=== PATIENT | male | born 1960 | race Caucasian/White ===

== ENCOUNTER 2025-01-01 11:29 | Inpatient (IN) | payer MEDICARE, OTHER ==
--- NOTE | 2025-01-01 11:54 | ED ---
SOB HPI - General Stated Complaint: BIANCA Time Seen by Provider: 01/01/25 11:52 Source: RN notes reviewed, old records reviewed Mode of arrival: EMS Limitations: no limitations, language barrier - History of Present Illness Initial Comments: This is a 64-year-old male to the ER for evaluation of weakness weakness and shortness of breath shortness of breath and chest pain. History of COPD, patient has been worsening symptoms for few days but severe today went to an urgent care sent to the Emergency Department due to severely low oxygen levels. Patient feels improved with oxygen here in the ER but still short of breath he also got breathing treatments prior to arrival. Patient states he has been smoking less lately due to inability to smoke and had a half a cigarette today when he began having severe shortness of breath MD Complaint: shortness of breath, cough -: days(s) Radiation: other Severity: severe Severity scale (1-10): 10 Quality: throbbing Consistency: constant Improves With: nothing Worsens With: exertion Known History Of: COPD, asthma Context: recent URI, recent illness Associated Symptoms: denies other symptoms Treatments Prior to Arrival: none - Related Data Home Medications Medication Instructions Recorded Confirmed Albuterol Inhaler [Ventolin Hfa 2 puff INHALATION RT-QID PRN 01/01/25 01/01/25 Inhaler] Atorvastatin [Lipitor] 40 mg PO DAILY 01/01/25 01/01/25 Ergocalciferol (Vitamin D2) 1,250 mcg PO WE 01/01/25 01/01/25 [Drisdol (GEQ) 1,250 MCG (50,000 IU)] Escitalopram [Lexapro] 20 mg PO DAILY 01/01/25 01/01/25 Fenofibrate [Lofibra] 160 mg PO DAILY 01/01/25 01/01/25 Ibuprofen [Motrin] 800 mg PO Q8H PRN 01/01/25 01/01/25 OLANZapine [ZyPREXA] 10 mg PO DAILY 01/01/25 01/01/25 clonazePAM [KlonoPIN] 1 mg PO DAILY PRN 01/01/25 01/01/25 Allergies Allergy/AdvReac Type Severity Reaction Status Date / Time No Known Allergies Allergy Verified 01/01/25 13:19 Review of Systems ROS Statement: Those systems with pertinent positive or pertinent negative responses have been documented in the HPI. ROS Other: All systems not noted in ROS Statement are negative. General Exam General appearance: alert, in no apparent distress Head exam: Present: atraumatic, normocephalic, normal inspection Eye exam: Present: normal appearance, PERRL, EOMI. Absent: scleral icterus, conjunctival injection, periorbital swelling ENT exam: Present: normal exam, mucous membranes moist Neck exam: Present: normal inspection. Absent: tenderness, meningismus, lymphadenopathy Respiratory exam: Present: respiratory distress, wheezes, decreased breath sounds, prolonged expiratory. Absent: rales, rhonchi, stridor Cardiovascular Exam: Present: normal rhythm, tachycardia, normal heart sounds. Absent: systolic murmur, diastolic murmur, rubs, gallop, clicks GI/Abdominal exam: Present: soft, normal bowel sounds. Absent: distended, tenderness, guarding, rebound, rigid Extremities exam: Present: normal inspection, full ROM, normal capillary refill. Absent: tenderness, pedal edema, joint swelling, calf tenderness Back exam: Present: normal inspection Neurological exam: Present: alert, oriented X3, CN II-XII intact Psychiatric exam: Present: normal affect, normal mood Skin exam: Present: warm, dry, intact, normal color. Absent: rash Course Vital Signs 01/01/25 01/01/25 01/01/25 11:33 12:13 13:08 Pulse Rate 111 H 108 H 103 H Respiratory 19 20 Rate Blood Pressure 134/93 133/83 O2 Sat by Pulse 99 96 Oximetry 01/01/25 01/01/25 13:26 14:35 Pulse Rate 106 H 105 H Respiratory 20 Rate Blood Pressure 120/78 O2 Sat by Pulse 95 Oximetry - Reevaluation(s) Reevaluation #1: 01/01/25 13:16 Medical records reviewed Reevaluation #2: 01/01/25 13:17 Patient symptoms are improved but still with shortness of breath here in the emergency department Patient did not appear to be any significant respiratory distress Reevaluation #3: 01/01/25 13:17 Patient informed of results and questions answered Reevaluation #4: Was pt. sent in by a medical professional or institution (, PA, FISH BIN TENDER, urgent care, hospital, or senior care...) When possible be specific @ -no Did you speak to anyone other than the patient for history (EMS, parent, family, police, friend...)? What history was obtained from this source @ -no Did you review nursing and triage notes (agree or disagree)? Why? @ -agree Are old charts reviewed (outside hosp., previous admission, EMS record, old EKG, old radiological studies, urgent care reports/EKG's, senior care records)? Report findings @ -yes Differential Diagnosis (chest pain, altered mental status, abdominal pain women, abdominal pain men, vaginal bleeding, weakness, fever, dyspnea, syncope, headache, dizziness, GI bleed, back pain, seizure, CVA, palpatations, mental health, musculoskeletal)? @ -prior EKG interpreted by me (3pts min.). @ -yes X-rays interpreted by me (1pt min.). @ -yes positive for CHF CT interpreted by me (1pt min.). @ -no U/S interpreted by me (1pt. min.). @ -no What testing was considered but not performed or refused? (CT, X-rays, U/S, labs)? Why? @ -none What meds were considered but not given or refused? Why? @ -none Did you discuss the management of the patient with other professionals (professionals i.e. , PA, FISH BIN TENDER, lab, RT, psych nurse, social media strategist, assistant professor in family studies, teacher, radiation safety officer, foster care case manager)? Give summary @ -no Was smoking cessation discussed for >3mins.? @ -no Was critical care preformed (if so, how long)? @ -yes31 Were there social determinants of health that impacted care today? How? (Homelessness, low income, unemployed, alcoholism, drug addiction, transportation, low edu. Level, literacy, decrease access to med. care, assisted, rehab)? @ -none Was there de-escalation of care discussed even if they declined (Discuss DNR or withdrawal of care, Hospice)? DNR status @ -no What co-morbidities impacted this encounter? (DM, HTN, Smoking, COPD, CAD, Cancer, CVA, ARF, Chemo, Hep., AIDS, mental health diagnosis, sleep apnea, morbid obesity)? @ -none Was patient admitted / discharged? Hospital course, mention meds given and route, prescriptions, significant lab abnormalities, going to OR and other pertinent info. @ - 64 male to ER for evaluation of severe COPD patient will be admitted for COPD exacerbation, CHF, elevated troponin with new left bundle branch will go to the catheterization lab with cardiology, hypoxia prior to arrival. Admitted Undiagnosed new problem with uncertain prognosis? @ -no Drug Therapy requiring intensive monitoring for toxicity (Heparin, Nitro, Insulin, Cardizem)? @ -no Were any procedures done? @ -no Diagnosis/symptom? @ -NSTEMI COPD CHF hypoxia Acute, or Chronic, or Acute on Chronic? @ -Acute Uncomplicated (without systemic symptoms) or Complicated (systemic symptoms)? @ -Complicated Side effects of treatment? @ -no Exacerbation, Progression, or Severe Exacerbation? @ -exacerbation Poses a threat to life or bodily function? How? (Chest pain, [place], [place], pneumonia, PE, COPD, DKA, ARF, appy, cholecystitis, CVA, Diverticulitis, Homicidal, Suicidal, threat to staff... and all critical care pts) @ -yes acute ACS Reevaluation #5: Differential Dyspnea: Coronary syndrome, arrhythmia, tamponade, asthma, COPD, pulmonary embolism, pneumonia, pneumothorax, pulmonary effusion, anaphylaxis, diabetic ketoacidosis, flailed chest, pulmonary contusion, diaphragmatic rupture, anemia, neuromuscular, this is not meant to be an all-inclusive list. - Consultations Consultation #1: Spoke with sounds who agrees to admit this patient Consultation #2: Spoke with cardiology aware of patient's left bundle with no prior EKG on file, elevated troponin at 4.4 Medical Decision Making - Medical Decision Making 64 male to ER for evaluation of severe COPD patient will be admitted for COPD exacerbation, CHF with hypoxia, elevated troponin non-ST elevated [place] with new left bundle will go to the catheterization lab with cardiology - Lab Data Result diagrams: 01/01/25 12:37 01/01/25 12:37 Lab Results 01/01/25 01/01/25 01/01/25 Range/Units 12:37 12:37 12:37 WBC 11.90 H (4.50-10.00) 10*3/uL RBC 5.24 (4.40-5.60) 10*6/uL Hgb 16.2 (13.0-17.0) g/dL Hct 47.8 (39.6-50.0) % MCV 91.2 (80.0-97.0) fL MCH 30.9 (27.0-32.0) pg MCHC 33.9 (32.0-37.0) g/dL Plt Count 291 (140-440) 10*3/uL MPV 10.6 (9.5-12.2) fL Immature Gran % (Auto) 0.6 % Neutrophils % 82.0 % Lymphocytes % 11.4 % Monocytes % 5.1 % Eosinophils % 0.3 % Basophils % 0.6 % Immature Gran # 0.07 H (0.00-0.04) 10*3/uL Neutrophils # 9.76 H (1.80-7.70) 10*3/uL Lymphocytes # 1.36 (0.90-5.00) 10*3/uL Monocytes # 0.61 (0.20-1.00) 10*3/uL Eosinophils # 0.03 L (0.04-0.35) 10*3/uL Basophils # 0.07 (0.00-0.10) 10*3/uL PT 11.6 (10.0-12.5) sec INR 1.1 (<1.2) APTT 24.2 (22.0-30.0) sec Sodium 133 L (137-145) mmol/L Potassium 4.8 (3.5-5.1) mmol/L Chloride 99 (98-107) mmol/L Carbon Dioxide 22 (22-30) mmol/L Anion Gap 12 mmol/L BUN 16 (9-20) mg/dL Creatinine 1.11 (0.66-1.25) mg/dL Est GFR (CKD-EPI)AfAm 80 (>60 ml/min/1.73 sqM) Est GFR (CKD-EPI)NonAf 70 (>60 ml/min/1.73 sqM) Glucose 127 H (74-99) mg/dL Estimated Ave Glu mg/dL mg/dL Hemoglobin A1c (<=6.0) % Calcium 9.5 (8.4-10.2) mg/dL Magnesium 1.7 (1.6-2.3) mg/dL Total Bilirubin 1.1 (0.2-1.3) mg/dL AST 80 H (17-59) U/L ALT 39 (4-49) U/L Alkaline Phosphatase 48 (38-126) U/L Troponin I (0.000-0.034) ng/mL NT-Pro-B Natriuret Pep 2270 pg/mL Total Protein 7.5 (6.3-8.2) g/dL Albumin 4.1 (3.5-5.0) g/dL Triglycerides (0.00-149.00) mg/dL Cholesterol (0.00-200.00) mg/dL LDL Cholesterol, Calc (0.0-131.0) mg/dL VLDL Cholesterol, Calc (5.00-40.00) mg/dL HDL Cholesterol (40.00-60.00) mg/dL Cholesterol/HDL Ratio Ratio TSH (0.350-5.500) UIU/ML 01/01/25 01/01/25 01/01/25 Range/Units 12:37 12:37 12:37 WBC (4.50-10.00) 10*3/uL RBC (4.40-5.60) 10*6/uL Hgb (13.0-17.0) g/dL Hct (39.6-50.0) % MCV (80.0-97.0) fL MCH (27.0-32.0) pg MCHC (32.0-37.0) g/dL Plt Count (140-440) 10*3/uL MPV (9.5-12.2) fL Immature Gran % (Auto) % Neutrophils % % Lymphocytes % % Monocytes % % Eosinophils % % Basophils % % Immature Gran # (0.00-0.04) 10*3/uL Neutrophils # (1.80-7.70) 10*3/uL Lymphocytes # (0.90-5.00) 10*3/uL Monocytes # (0.20-1.00) 10*3/uL Eosinophils # (0.04-0.35) 10*3/uL Basophils # (0.00-0.10) 10*3/uL PT (10.0-12.5) sec INR (<1.2) APTT (22.0-30.0) sec Sodium (137-145) mmol/L Potassium (3.5-5.1) mmol/L Chloride (98-107) mmol/L Carbon Dioxide (22-30) mmol/L Anion Gap mmol/L BUN (9-20) mg/dL Creatinine (0.66-1.25) mg/dL Est GFR (CKD-EPI)AfAm (>60 ml/min/1.73 sqM) Est GFR (CKD-EPI)NonAf (>60 ml/min/1.73 sqM) Glucose (74-99) mg/dL Estimated Ave Glu mg/dL 126 mg/dL Hemoglobin A1c 6.0 (<=6.0) % Calcium (8.4-10.2) mg/dL Magnesium (1.6-2.3) mg/dL Total Bilirubin (0.2-1.3) mg/dL AST (17-59) U/L ALT (4-49) U/L Alkaline Phosphatase (38-126) U/L Troponin I 4.420 H* (0.000-0.034) ng/mL NT-Pro-B Natriuret Pep pg/mL Total Protein (6.3-8.2) g/dL Albumin (3.5-5.0) g/dL Triglycerides 121.00 (0.00-149.00) mg/dL Cholesterol 158.00 (0.00-200.00) mg/dL LDL Cholesterol, Calc 102.2 (0.0-131.0) mg/dL VLDL Cholesterol, Calc 24.20 (5.00-40.00) mg/dL HDL Cholesterol 31.60 L (40.00-60.00) mg/dL Cholesterol/HDL Ratio 5.00 Ratio TSH 1.910 (0.350-5.500) UIU/ML - EKG Data -: EKG Interpreted by Me (EKG is sinus tachycardia 112 WV 139 QRS 163 QTc 429) - Radiology Data Radiology results: report reviewed (Chest x-ray is positive for CHF), image reviewed Critical Care Time Critical Care Time: Yes Total Critical Care Time: 31 Disposition Clinical Impression: Acute exacerbation of chronic obstructive pulmonary disease, Hypoxia, NSTEMI (non-ST elevated myocardial infarction), Left bundle branch block, Elevated troponin, Congestive heart failure, Acute pulmonary edema Disposition: ADMITTED IP TO THIS HOSP Condition: Critical Is patient prescribed a controlled substance at d/c from ED?: No Time of Disposition: 13:10
[2025-01-01] MEDS: methylPREDNISolone SOD SUCCI 125 MG/2 ML VIAL IV STA (12:38)
[2025-01-01 12:48] LABS: Basophils # (A) 0.07 10*3/uL (0.00-0.10); Basophils % (A) 0.6 %; Eosinophils # (A) 0.03 10*3/uL (0.04-0.35); Eosinophils % (A) 0.3 %; HCT 47.8 % (39.6-50.0); HGB 16.2 g/dL (13.0-17.0); Lymphocytes # (A) 1.36 10*3/uL (0.90-5.00); Lymphocytes % (A) 11.4 %; MCH 30.9 pg (27.0-32.0); MCHC 33.9 g/dL (32.0-37.0); MCV 91.2 fL (80.0-97.0); Mean Platelet Volume 10.6 fL (9.5-12.2); Monocytes # (A) 0.61 10*3/uL (0.20-1.00); Monocytes % (A) 5.1 %; Neutrophils # (A) 9.76 10*3/uL (1.80-7.70); Platelet Count 291 10*3/uL (140-440); RBC 5.24 10*6/uL (4.40-5.60); RDW 14.4 % (11.5-14.5)
[2025-01-01 12:59] LABS: INR 1.1 (<1.2); Partial Thromboplastin Time 24.2 sec (22.0-30.0); Prothrombin Time 11.6 sec (10.0-12.5)
[2025-01-01] MEDS ORDERED: ONDANSETRON 4 MG/2 ML VIAL IVP PRN (13:08)
[2025-01-01] MEDS ORDERED: NALOXONE 0.4 MG/ML 1 ML VIAL IV PRN (13:08)
[2025-01-01] MEDS: IPRATROPIUM-ALBUTEROL 3 ML NEB INHALATION STA ×2 (13:08→15:53)
[2025-01-01 13:09] LABS: ALT 39 U/L (4-49); AST 80 U/L (17-59); African American GFR (CKD) 80 (>60 ml/min/1.73 sqM); Albumin 4.1 g/dL (3.5-5.0); Alkaline Phosphatase 48 U/L (38-126); Anion Gap 12 mmol/L; Blood Urea Nitrogen 16 mg/dL (9-20); Calcium 9.5 mg/dL (8.4-10.2); Carbon Dioxide 22 mmol/L (22-30); Chloride 99 mmol/L (98-107); Glucose 127 mg/dL (74-99); Magnesium 1.7 mg/dL (1.6-2.3); NT-Pro-B-Type Natriuretic Pept 2270 pg/mL; Non-African American GFR(CKD) 70 (>60 ml/min/1.73 sqM); Potassium 4.8 mmol/L (3.5-5.1); Sodium 133 mmol/L (137-145); Total Bilirubin 1.1 mg/dL (0.2-1.3); Total Protein 7.5 g/dL (6.3-8.2)
[2025-01-01] MEDS ORDERED: HEPARIN SODIUM 1,000 UN/ML (10ML VL) IV PRN (14:03)
[2025-01-01] MEDS ORDERED: NITROGLYCERIN SL TABS 0.4 MG TAB SUBLINGUAL PRN (14:08)
[2025-01-01] MEDS ORDERED: ALPRAZolam 0.5 MG TAB PO PRN (14:08)
[2025-01-01] MEDS ORDERED: ALPRAZolam 0.25 MG TAB PO PRN (14:08)
--- NOTE | 2025-01-01 14:26 | XR ---
EXAMINATION TYPE: XR chest 1V portable DATE OF EXAM: 01/01/2025 CLINICAL INDICATION: Male, 64 years old with history of sob. TECHNIQUE: Single AP portable upright view of the chest is obtained. COMPARISON: None FINDINGS: There is cardiomegaly with bibasilar opacities and central vascular congestion. Osseous st ructures are intact. IMPRESSION: Correlate for CHF exacerbation. Underlying bibasilar acute infiltrates not excluded. [facility], , 01/01/2025 2:24 PM
[2025-01-01] MEDS: ATORVASTATIN 80 MG TAB PO STA (14:28)
[2025-01-01] MEDS: ASPIRIN 325 MG TAB PO STA (14:28)
[2025-01-01] MEDS: HEPARIN SODIUM 1,000 UN/ML (10ML VL) IV ONE (14:30)
[2025-01-01] MEDS: SODIUM CHLORIDE 0.9% 1,000 ML in EMPTY BAG 1 BAG IV SCH (14:31)
[2025-01-01] MEDS: HEPARIN SOD,PORK IN 0.45% NACL 25,000 UNIT in 0.45% NACL 1 250ML.BAG IV SCH (14:32)
[2025-01-01] MEDS: SODIUM CHLORIDE 0.9% 1,000 ML IV SCH ×2 (14:43→20:04)
[2025-01-01] MEDS: ASPIRIN 81 MG PO STA (14:43)
[2025-01-01] MEDS ORDERED: clonazePAM 1 MG TAB PO PRN (15:12)
[2025-01-01] MEDS: ALBUTEROL NEBULIZED 2.5 MG/3 ML INHALATION SCH (15:54)
[2025-01-01] MEDS: LIDOCAINE 1% INJ 10MG/ML (10 ML MDV) SQ ONE (16:59)
[2025-01-01] MEDS: fentaNYL (PF) 50 MCG/1 ML VIAL IVP ONE (16:59)
[2025-01-01] MEDS: MIDAZOLAM 2 MG/2 ML VIAL IVP ONE (16:59)
[2025-01-01] MEDS: HEPARIN SODIUM 1,000 UN/ML (10ML VL) IVP ONE (17:01)
[2025-01-01] MEDS: VERAPAMIL SYRINGE (5 MG/10 ML) INTRAARTER ONE (17:01)
[2025-01-01] MEDS: HEPARIN SODIUM,PORCINE 10,000 UNIT in SODIUM CHLORIDE 0.9% 1,000 ML IRRIGATION ONE (17:08)
[2025-01-01] MEDS: SODIUM CHLORIDE 0.9% 1,000 ML IV ONE (17:08)
[2025-01-01] MEDS: HEPARIN SODIUM,PORCINE (1 ML) 2,500 UNIT in SODIUM CHLORIDE 0.9% 250 ML IRRIGATION ONE (17:08)
[2025-01-01] MEDS ORDERED: ALBUTEROL NEBULIZED 2.5 MG/3 ML INHALATION PRN (17:15)
[2025-01-01 17:49] LABS: O2 Sat Blood Gas 64.6 %
[2025-01-01 17:52] LABS: O2 Sat Blood Gas 91.9 %
[2025-01-01 17:54] LABS: O2 Sat Blood Gas 63.6 %
[2025-01-01] MEDS ORDERED: methylPREDNISolone SOD SUCCI 125 MG/2 ML VIAL IV SCH (18:00)
[2025-01-01] MEDS: IOPAMIDOL-300 100ML BTL INJ ONE (18:31)
--- NOTE | 2025-01-01 18:51 | P.CARDCATH ---
Date of Procedure: 01/01/25 Description of Procedure: DIAGNOSTIC CORONARY ANGIOGRAPHY and, right heart catheterization, LEFT HEART CATH REPORT PROCEDURES PERFORMED: Left heart catheterization Right heart catheterization Selective coronary angiography Moderate conscious sedation 82 mins Ultrasound assisted right radial access Ultrasound assisted right common femoral vein access Ultrasound assisted right common femoral artery access Attempted intra-aortic balloon pump INDICATION: NSTEMI, cardiomyopathy BRIEF HPI: 64-year-old presented to the hospital because of increased worsening shortness of breath. On admission he was noticed to have sinus tachycardia with new right bundle branch block on EKG. He was also noticed to be in congestive heart failure exacerbation. He reports that he has been smoking 1 to 2 packs for last few weeks and has been increasingly stressed. He denied any symptoms of substernal chest pressure. He also had evidence of elevated troponin of 4.420, NT-proBNP 2270 CONSENT: I have explained the procedural steps of above-mentioned procedures in layman's terms to the patient. I discussed the risks (including but not limited to stroke, emergent vascular or cardiac surgery or ), benefits and alternative therapies for the above-mentioned procedure. I discussed the risks of sedation/analgesia and blood product administration (if indicated). The patient has indicated understanding and acceptance of these risks. Conscious Sedation: Patient's ECG, heart rate, blood pressure, pulse oximetry were monitored throughout the duration of procedure under my direct supervision. 1 mg Versed and 50 mcg Fentanyl were used for induction of moderate conscious sedation. Total duration of moderate concious sedation 82 minutes. PROCEDURAL DETAILS: Patient was prepped and draped in sterile fashion. 1% lidocaine was infiltrated over the right radial artery. Right radial access was obtained via modified seldinger technique. Ultrasound assisted right radial access. Medications: 5mg of verapamil was administed in the radial sheet. 7000 units of Heparin was administed once the catheter reached the aortic root Wires and Catheter used: J wire was advanced under fluroscopy to get to aortic root. 5 slovak JR 4 diagnostic catheter was utilized obtain left ventricular pressure and pressure gradint across aortic valve. 5 slovak JR 4 diagnostic catheter was used to selectively engage the right coronary ostium. 6 slovak JL 4.5 diagnostic catheter was utilized to selectively engage the left coronary ostium. Angiographic images were reviewed in detail. Patient was made to proceed with right heart catheterization for anticipated Impella versus IABP insertion evaluation. Right common femoral artery and common femoral vein was identified using ultrasound. Right common femoral vein access was obtained under ultrasound guidance using a modified Seldinger techn ique. 8 American femoral venous sheath was inserted in the common femoral vein. 7 American [place]-Saniya catheter was advanced to the common femoral vein under fluoroscopy guidance . Right heart catheterization was performed. Pressures and samples were collected from wedge position, pulmonary artery, RV and RA. Mirna cardiac output and thermodilution cardiac output study was performed. The [place]-Saniya catheter was removed. The sheath was flushed. Cardiac output and cardiac index were in favorable range therefore we did not decide to proceed with Impella. We decided to proceed with IABP. For this right common femoral artery was identified using ultrasound. Right common femoral access was obtained using modified Seldinger technique under ultrasound guidance. 6 American sheath was inserted in the right common femoral artery. Right common femoral angiogram was performed which showed appropriate placement of the sheath. While patient the 8 American IABP sheath, there was significant kinking of the wire and the IABP sheath could not be advanced in the femoral artery. The wire eventually came out therefore we decided to abort the IABP placement. Manual pressure was held for 30 minutes. Radial sheath was flushed and removed. TR band was placed. Venous sheath was removed and manual pressure was held. FemoStop was placed HEMODYNAMICS: Aortic Pressure: 98/70 mmHg. LV pressure: 98/16 mmHg. LVEDP 32 mmHg. There was no significant gradient across the aortic valve. Mean PCW pressure: 32 mmHg PA pressure: 54/26 mmHg, mean 40 mmHg RV pressure: 54/7 mmHg, RVEDP 12 mmHg Mean RA pressure: 12 mmHg BSA 2.75, hemoglobin 16, heart rate 103, FA sat 92% RA sat 65% RV sat 64% PA sat 64% Mirna cardiac output 6.2 L/min Mirna cardiac index 2.25 L/min Thermodilution cardiac output 8.8 L/min Thermodilution cardiac index 3.19 L/min/m Appropriate CYTOLOGY SUPERVISOR and Jackie Appropriate SVR and PVR SELECTIVE CORONARY ARTERIOGRAPHY: LEFT MAIN: The left main is short and large caliber vessel. It bifurcates into the LAD and circumflex. Left main appears angiographically normal. LEFT ANTERIOR DESCENDING CORONARY ARTERY: LAD is large caliber and wraps around the apex. Proximal LAD has a 90% stenosis. Mid LAD has mild luminal irregularities. It gives rise to a medium caliber diagonal branch which has mild mid irregularities. Distal part of mid LAD has 30 to 40% disease. Distal LAD appears angiographically patent. VIGNESH-3 flow LEFT CIRCUMFLEX CORONARY ARTERY: LCx is nondominant. Moderate caliber. Proximal LCx 10 to 20% disease. Mid LCx has 80 to 90% focal stenosis. Distal to stenosis mid LCx gives rise to a medium caliber AV groove vessel which appears angiographically patent. Mid LCx mild diffuse disease. Distal LAD gives rise to a medium caliber OM 2 and OM 3. Both OM 2 and OM 3 has 70% ostial disease. Distal LCx has mild diffuse disease. VIGNESH-3 flow RIGHT CORONARY ARTERY: RCA appears to be dominant vessel and is 100% occluded in proximal segment. There are no [id number] collaterals filling distal RCA. IMPRESSION: 100% proximal RCA stenosis 90% proximal LAD stenosis 90% mid LCx stenosis Elevated LVEDP and wedge pressures PLAN: Aggressive risk factor modification Admit to ICU Aspirin, high intensity statin, low-dose beta-kenn, afterload reduction with low-dose nitroglycerin drip CTS consult Reattempt intra-aortic balloon pump if needed tomorrow Monitor right groin for hematoma. Repeat CBC in 6 hours and thereafter tomorrow Performing Physician Cristo Cannon MD, FACC, RPVI Thank you for allowing [facility] to participate in this patient's care. Feel free to reach out in case of any followup questions.
[2025-01-01 18:57] LABS: LDL Cholesterol,Calculated 102.2 mg/dL (0.0-131.0)
[2025-01-01] MEDS ORDERED: RX INFO: IV CONTRAST WAS GIVEN 1 EACH MISC MISCELLANE PRN (18:59)
--- NOTE | 2025-01-01 18:59 | P.CRDCN ---
History of Present Illness Consult date: 01/01/25 History of present illness: HISTORY OF PRESENTING ILLNESS: Patient is a 64-year-old male with history of smoking, bipolar disorder, COPD. He has not seen any physician in the recent past. He initially went to the urgent care because of increased worsening shortness of breath. On admission ER physician contacted me for urgent consult for elevated troponin of 4.420. His EKG showed sinus tachycardia with right bundle branch block. On initial evaluation he appeared mildly diaphoretic and elevated JVP and lower extremity edema. Due to these concerns of acute CHF exacerbation elevated troponin he was taken to the Urologic Nurse patient gave verbal consent.. Admission x-ray shows signs of mild pulmonary congestion with increase interstitial markings suggestive of fluid overload. REVIEW OF SYSTEMS: 14 point review of system is negative except what is mentioned above in HPI. PHYSICAL EXAMINATION: Neck: Brisk carotid upstroke, elevated JVP Lungs: Bilateral lung de leon crackles audible Heart: Regular rate and rhythm, S1-S2, , no murmur or rub. Abdomen: Soft nontender, positive bowel sounds. Extremities: 1+ pedal edema bilateral lower extremity Neuro: Alert, oritented, no focal deficits. Detailed neuro exam was not performed. ASSESSMENT: # NSTEMI # Acute CHF exacerbation # Tobacco smoker 1 to 2 packs/day # Morbid obesity # Bipolar disorder PLAN: Plan for cardiac either transition Further recommendations to follow Obtain echocardiogram Cristo Cannon MD, FACC, RPVI Thank you for allowing [facility] to participate in this patient's care. Feel free to reach out in case of any followup questions. Past Medical History Past Medical History: No Reported History History of Any Multi-Drug Resistant Organisms: None Reported Additional Past Surgical History / Comment(s): eye operations Smoking Status: Current every day smoker Past Alcohol Use History: None Reported Past Drug Use History: None Reported Medications and Allergies Home Medications Medication Instructions Recorded Confirmed Type Albuterol Inhaler [Ventolin Hfa 2 puff INHALATION RT-QID PRN 01/01/25 01/01/25 History Inhaler] Atorvastatin [Lipitor] 40 mg PO DAILY 01/01/25 01/01/25 History Ergocalciferol (Vitamin D2) 1,250 mcg PO WE 01/01/25 01/01/25 History [Drisdol (GEQ) 1,250 MCG (50,000 IU)] Escitalopram [Lexapro] 20 mg PO DAILY 01/01/25 01/01/25 History Fenofibrate [Lofibra] 160 mg PO DAILY 01/01/25 01/01/25 History Ibuprofen [Motrin] 800 mg PO Q8H PRN 01/01/25 01/01/25 History OLANZapine [ZyPREXA] 10 mg PO DAILY 01/01/25 01/01/25 History clonazePAM [KlonoPIN] 1 mg PO DAILY PRN 01/01/25 01/01/25 History Allergies Allergy/AdvReac Type Severity Reaction Status Date / Time No Known Allergies Allergy Verified 01/01/25 13:19 Physical Exam Vitals: Vital Signs Pulse Resp BP Pulse Ox 01/01/25 14:35 105 H 20 120/78 95 01/01/25 13:26 106 H 01/01/25 13:08 103 H 01/01/25 12:13 108 H 20 133/83 96 01/01/25 11:33 111 H 19 134/93 99 Intake and Output 01/01/25 01/01/25 01/01/25 06:59 14:59 22:59 Intake Total 200 Balance 200 Intake: IV 200 Other: Weight 148.325 kg Results 01/01/25 12:37 01/01/25 12:37 Cardiac Enzymes 01/01/25 01/01/25 Range/Units 12:37 12:37 AST 80 H (17-59) U/L Troponin I 4.420 H* (0.000-0.034) ng/mL Coagulation 01/01/25 Range/Units 12:37 PT 11.6 (10.0-12.5) sec APTT 24.2 (22.0-30.0) sec Lipids 01/01/25 Range/Units 12:37 Triglycerides 121.00 (0.00-149.00) mg/dL Cholesterol 158.00 (0.00-200.00) mg/dL HDL Cholesterol 31.60 L (40.00-60.00) mg/dL Cholesterol/HDL Ratio 5.00 Ratio CBC 01/01/25 Range/Units 12:37 WBC 11.90 H (4.50-10.00) 10*3/uL RBC 5.24 (4.40-5.60) 10*6/uL Hgb 16.2 (13.0-17.0) g/dL Hct 47.8 (39.6-50.0) % Plt Count 291 (140-440) 10*3/uL Comprehensive Metabolic Panel 01/01/25 Range/Units 12:37 Sodium 133 L (137-145) mmol/L Potassium 4.8 (3.5-5.1) mmol/L Chloride 99 (98-107) mmol/L Carbon Dioxide 22 (22-30) mmol/L BUN 16 (9-20) mg/dL Creatinine 1.11 (0.66-1.25) mg/dL Glucose 127 H (74-99) mg/dL Calcium 9.5 (8.4-10.2) mg/dL AST 80 H (17-59) U/L ALT 39 (4-49) U/L Alkaline Phosphatase 48 (38-126) U/L Total Protein 7.5 (6.3-8.2) g/dL Albumin 4.1 (3.5-5.0) g/dL Current Medications Generic Name Dose Route Start Last Admin Trade Name Freq PRN Reason Stop Dose Admin Albuterol Sulfate 2.5 mg 01/01/25 16:00 01/01/25 15:54 Albuterol Nebulized 2.5 Mg/3 Ml INHALATION Not Given RT-QID [facility] Albuterol Sulfate 2 mg 01/01/25 17:15 Albuterol Nebulized 2.5 Mg/3 Ml INHALATION RT-QID PRN Shortness Of Breath Albuterol/Ipratropium 3 ml 01/01/25 20:00 Ipratropium-Albuterol 3 Ml Neb INHALATION RT-QID [facility] Alprazolam 0.25 mg 01/01/25 14:08 Alprazolam 0.25 Mg Tab PO Q6HR PRN Mild Anxiety Alprazolam 0.5 mg 01/01/25 14:08 Alprazolam 0.5 Mg Tab PO Q6HR PRN Moderate Anxiety Aspirin 81 mg 01/02/25 09:00 Aspirin 81 Mg PO DAILY [facility] Atorvastatin Calcium 40 mg 01/02/25 09:00 Atorvastatin 40 Mg Tab PO DAILY [facility] Clonazepam 1 mg 01/01/25 15:12 Clonazepam 1 Mg Tab PO DAILY PRN Anxiety Escitalopram Oxalate 20 mg 01/02/25 09:00 Escitalopram 20 Mg Tab PO DAILY [facility] Fenofibrate 160 mg 01/02/25 09:00 Fenofibrate 160 Mg Tab PO DAILY [facility] Sodium Chloride 1,000 mls @ 75 mls/hr 01/01/25 13:15 01/01/25 14:43 Saline 0.9% IV Not Given .[id number] [facility] Heparin Sodium (Porcine) 10, 1,001 mls @ 999 mls/hr 01/02/25 07:00 000 unit/ Sodium Chloride IRRIGATION 01/02/25 23:00 ONCE PRN INTRA-OP Heparin Sodium (Porcine) 2,500 250.5 mls @ 250 mls/hr 01/02/25 07:00 unit/ Sodium Chloride IRRIGATION 01/02/25 23:00 ONCE PRN INTRA-OP Sodium Chloride 1,000 ml/ IV 1,000 mls @ 148.325 mls/hr 01/01/25 14:15 01/01/25 14:31 Solution IV 148.325 mls/hr .[id number] [facility] Administration 1 ML/KG/HR Methylprednisolone Sodium Succinate 60 mg 01/01/25 18:00 Methylprednisolone Sod Succi 125 Mg/2 Ml Vial IV Q6HR [facility] Naloxone HCl 0.2 mg 01/01/25 13:08 Naloxone 0.4 Mg/Ml 1 Ml Vial IV Q2M PRN Opioid Reversal Nitroglycerin 0.4 mg 01/01/25 14:08 Nitroglycerin Sl Tabs 0.4 Mg Tab SUBLINGUAL Q5M PRN Chest Pain Olanzapine 10 mg 01/02/25 09:00 Olanzapine 10 Mg Tab PO DAILY [facility] Ondansetron HCl 4 mg 01/01/25 13:08 Ondansetron 4 Mg/2 Ml Vial IVP Q8HR PRN Nausea And Vomiting Intake and Output 01/01/25 01/01/25 01/01/25 06:59 14:59 22:59 Intake Total 200 Balance 200 Intake: IV 200 Other: Weight 148.325 kg Patient Weight 01/02/25 06:59 Weight 148.325 kg 01/01/25 12:37 01/01/25 12:37
[2025-01-01 19:02] LABS: Glucose,Whole Blood 152 mg/dL (70-110)
--- NOTE | 2025-01-01 19:21 | CA ---
Transthoracic Echo Report Name: Rayshawn Branch Age: 64 Gender: M : 1960 Exam Date: 01/01/2025 14:38 Exam Location: [facility] Ht (in): 77 Wt (lb): 327 Ordering Physician: Cristo Cannon MD ([email or web address]) Attending/Referring Phys: [employer] Driver Karli Small RDCS Procedure CPT: Indications: nstemi Cardiac Hx: Technical Quality: Technically difficult study Contrast 1: Definity Total Dose (mL): 2 Contrast 2: Total Dose (mL): MEASUREMENTS (Male / Female) Normal Values 2D ECHO LV Diastolic Diameter PLAX 6.6 cm 4.2 - 5.9 / 3.9 - 5.3 cm LV Systolic Diameter PLAX 5.3 cm IVS Diastolic Thickness 1.2 cm 0.6 - 1.0 / 0.6 - 0.9 cm LVPW Diastolic Thickness 1.2 cm 0.6 - 1.0 / 0.6 - 0.9 cm LV Relative Wall Thickness 0.4 LV Diastolic Volume MOD BP 224.5 cm??? 67 - 155 / 56 - 104 cm??? LV Systolic Volume MOD BP 156.0 cm??? 22 - 58 / 19 - 49 cm??? LV Ejection Fraction MOD BP 30.5 % >= 55 % LV Diastolic Volume MOD 4C 204.7 cm??? LV Systolic Volume MOD 4C 154.5 cm??? LV Ejection Fraction MOD 4C 24.5 % LV Diastolic Length 4C 9.1 cm LV Systolic Length 4C 8.8 cm LV Diastolic Volume MOD 2C 234.6 cm??? LV Systolic Volume MOD 2C 155.9 cm??? LV Ejection Fraction MOD 2C 33.5 % LV Diastolic Length 2C 9.6 cm LV Systolic Length 2C 8.7 cm LA Volume 64.8 cm??? 18 - 58 / 22 - 52 cm??? LA Volume Index 22.4 cm???/m??? 16 - 28 cm???/m??? Aorta at Sinuses Diameter 2.7 cm DOPPLER Right Atrial Pressure 10.0 mmHg FINDINGS Left Ventricle Left ventricular ejection fraction is estimated at 25-30 %. Mildly increased septal wall thickness. Moderately increased left ventricular diastolic diameter. Severely increased left ventricular diastolic volume. Severely increased left ventricular systolic volume. Moderately decreased left ventricular ejection fraction. Right Ventricle Right ventricle not well visualized. Unable to estimate the right ventricular systolic pressure. Right Atrium Normal right atrial size. Left Atrium Normal left atrial size. Mildly increased left atrial volume. Mitral Valve Mitral annular calcification. No mitral stenosis. Trace mitral regurgitation. Aortic Valve Aortic valve not well visualized. No aortic stenosis. No aortic regurgitation. Tricuspid Valve Tricuspid valve not well visualized. No tricuspid stenosis. Trace tricuspid regurgitation. Pulmonic Valve Pulmonic valve not well visualized. Pericardium Small pericardial effusion. Aorta Aortic annulus normal. CONCLUSIONS LVEF 25 to 30% Dilated LV cavity Globally reduced LV systolic function. Mid to distal anterior wall and anteroapical wall hypokinesia Technically difficult study. Valve function not assessed with great sensitivity Trace pericardial effusion Dilated IVC with no respiratory collapse Previewed by: Dr Cristo Cannon (Electronically Signed) Final Date: 01 Jan 2025 19:20
[2025-01-01] MEDS: FUROSEMIDE 10 MG/ML 4 ML VIAL IV SCH (20:03)
[2025-01-01] MEDS: carvediloL 3.125 MG TAB PO SCH (20:03)
[2025-01-01] MEDS: NITROGLYCERIN-D5W PMX 50 MG in DEXTROSE/WATER 1 250ML.BAG IV SCH (20:04)
[2025-01-01] MEDS: IPRATROPIUM-ALBUTEROL 3 ML NEB INHALATION SCH (20:12)
[2025-01-01] MEDS: LOSARTAN 25 MG TAB PO SCH (20:17)
[2025-01-01] MEDS: methylPREDNISolone ACETATE 40 MG/ML 1 ML VIAL INJ SCH (20:17)
[2025-01-01 20:55] LABS: Glucose,Whole Blood 148 mg/dL (70-110)
[2025-01-01] MEDS: MIDAZOLAM 2 MG/2 ML VIAL IV ONE (20:58)
[2025-01-01] MEDS ORDERED: DEXTROSE 5% IN WATER 50 ML BAG ONE (21:06)
[2025-01-01] MEDS ORDERED: AMIODARONE 50 MG/ML 3 ML VIAL IV ONE (21:06)
[2025-01-01] MEDS ORDERED: ATROPINE SULFATE 0.1 MG/ML 10ML SYRINGE ONE (21:06)
[2025-01-01] MEDS ORDERED: EPINEPHrine 10 ML SYRINGE (0.1 MG/ML) ONE (21:06)
[2025-01-01] MEDS ORDERED: MAGNESIUM SULFATE SYG 4.06 MEQ/ML SYRINGE ONE (21:06)
[2025-01-01] MEDS ORDERED: SODIUM BICARB 8.4% 50 ML SYR (1 MEQ/ML) ONE (21:06)
[2025-01-01 21:40] VITALS: BP 121/90; PULSE 107; RESP 34
[2025-01-01] MEDS: DOPamine DRIP 800 MG in DEXTROSE/WATER 1 250ML.BAG IV SCH (21:43)
--- NOTE | 2025-01-01 22:09 | P.EN ---
Rufus Hinojosa Note Patient: Rayshawn Branch Background: During bedside assessment with medicine resident/Dr. Yip in room 266, the LOCAL OWNER OPERATOR TRUCK DRIVER (Shalonda) reported unsuccessful IV access for heparin despite ultrasound- guided attempts (~2044). Consent was obtained for central line placement. However, the patient developed third-degree AV block with a ventricular rate in the 30s (~2049). Initial Interventions: Placed on monitoring and evaluation advisor for transcutaneous pacing (started ~2052). Patient became agitated/anxious during pacing and 2 mg IV Versed given (~2057). Dr. Cannon paged (~2100, read Perfect[employer]). MIGDALIA paged for intubation (~2102). Clinical Deterioration: Patient not tolerating pacing, agonal breathing, no palpable pulse. Rufus Hinojosa called. Rufus Hinojosa Timeline: Time Event 2104 [id number] ventilation initiated 2105 CPR started, chest compressions 2106 Epinephrine administered 2108 Intubated; Atropine 1 mg given 2109 Epinephrine given; Dr. Cannon had arrived at bedside. 2110 Pulse check: PEA 2112 PEA and Epinephrine given 2114 PEA and Bicarbonate given 2115 Epinephrine 7 PEA 0 Bicarbonate 2120 PEA 2 Vfib and 120 J shock 2123 Vfib and 150 J shock 2124 Amiodarone 300 mg + Epinephrine 2125 Vfib and 200 J shock 2126 Bicarbonate 2127 PEA and Epinephrine + Magnesium 2 g 2129 Vfib and 200 J shock + Amiodarone 150 mg 2130 Time of Family Notification: Brother Anurag arrived at bedside (~2199) and was provided updates.
--- NOTE | 2025-01-01 22:13 | P.PCN ---
Description of Procedure: Endotracheal Intubation Procedure Note INDICATION: Cardiac arrest PROCEDURE SILL WORKER: Dr. Kelly CONSENT: [X] The procedure was emergent, the patient was unable to provide consent, and a designee was not immediately available. PROCEDURE SUMMARY: Using a MAC 4 laryngoscope and a size 8 endotracheal tube with stylet, the patient was intubated on the first attempt with a glidescope. The stylet was removed and cuff balloon was inflated. Appropriate endotracheal tube position was confirmed by direct visualization of vocal cord passage, fogging of the tube, CO2 colormetric indicator and symmetric breath sounds. The tube was secured at 25 cm at the lips.
--- NOTE | 2025-01-01 22:29 | P.HPIM ---
History of Present Illness H&P Date: 01/01/25 History of present illness; 64-year-old man with PMH of COPD, bipolar disorder, hypertriglyceridemia who presented to the ED for evaluation of weakness, worsening shortness of breath and chest pain. He notes that he has a history of COPD however has had worsening symptoms over the past few days which became very severe today which caused him to go to the urgent care. From the urgent care he was sent to the emergency department due to severely low oxygen levels. Upon arrival to the emergency department when placed on oxygen patient stated that he felt better, he did receive a breathing treatment prior to his arrival to the emergency department. On arrival cardiology was consulted due to a severely elevated troponin at 4.420 and an EKG which showed sinus tachycardia with right bundle branch block. Additionally, chest x-ray was completed which showed findings of possible CHF exacerbation. With concerns of acute CHF exacerbation as well as elevated troponins he was taken to the [facility] urgently. Labratory review: -WBCs 11.90, hemoglobin 16.2, Peters crit 47.8, platelet 291; sodium 133, potassium 4.8, bicarb 22, BUN 16, creatinine 1.11; hemoglobin A1c 6.0, calcium 9.5, magnesium 1.7, total bilirubin 1.1, AST 80, ALT 39, alkaline phosphatase 48 - Initial troponin 4.420, proBNP 2270; triglycerides 121, cholesterol 158, LDL 102.2, VLDL 24.20, HDL 31.6; TSH 1.910 Imaging: -Chest x-ray done in the ED showed evidence of CHF exacerbation -CT head done showed no acute intracranial process -CTA head and neck done showed no significant stenosis, aneurysm or thrombus in the intracranial circulation -EKG done in the ED independently read and interpreted showed heart rate of 112, right bundle branch block and sinus tachycardia Vitals: - On arrival: Blood pressure 134/93, heart rate 111, respiratory rate 19, SpO2 99% on room air - Most recently: Blood pressure 120/78, heart rate 105, respiratory rate 20, SPO2 95% on 2 L nasal cannula Patient admitted to internal medicine service REVIEW OF SYSTEMS: Pertinent positives and negatives noted in HPI. The rest of the 14-point review of systems is negative. Physical Exam: General: nontoxic, in some distress; morbidly obese Derm: warm, dry, intact Head: atraumatic, normocephalic, symmetric Eyes: EOMI, anicteric sclera Mouth: no lip lesion, mucus membranes moist Cardiovascular: S1 S2 reg, no murmur, rubs, or gallops Lungs: CTA bilateral, no rales, no accessory muscle use Abdominal: soft, non-tender to palpataion, no appreciable organomegaly Extremities: no gross muscle atrophy, no edema, no contractures Neuro: Alert, Oriented, CNII-XII grossly intact, gait normal Psych: well appearing, appropriate affect Assessment and plan 64-year-old man with PMH of COPD, bipolar disorder, hypertriglyceridemia who presented to the ED for evaluation of weakness, worsening shortness of breath and chest pain. #NSTEMI w/triple vessel disease noted on cardiac cath #Acute CHF exacerbation - Underwent cardiac catheterization which showed 100% proximal RCA stenosis, 90% proximal LAD stenosis, 90% mid lef circumflex stenosis and elevated LVEDP and wedge pressure - Continue with aspirin 81 mg daily, Lipitor 40 mg daily, carvedilol 3.125 mg twice daily and nitroglycerin drip at 5 mcg/min; plans to re-initiate heparin drip following repeat CBC at 2300 per cardiology's recommendation - Cardiothoracic surgery consulted - Will reattempt intra-aortic balloon pump placement tomorrow - Continue to monitor right groin hematoma Chronic conditions: #Nicotine dependence, 1-2 packs/day smoker #Bipolar disorder #Morbid obesity #Hypertriglyceridemia - Resume home medications once verified by pharmacy - Respective modifications as possible GI prophylaxis: None DVT prophylaxis: Heparin drip to be restarted following repeat CBC at 2300. The patient is admitted with an anticipated more than than 2 midnight stay for evaluation of NSTEMI and need for CABG. CODE STATUS: Full code Discussed with: Patient Anticipated discharge place: Pending clinical course Dictation was produced using [email or web address] dictation software. please excuse any grammatical, word or spelling errors. Omar Yip MD PGY-1 IM Past Medical History Past Medical History: No Reported History History of Any Multi-Drug Resistant Organisms: None Reported Additional Past Surgical History / Comment(s): eye operations Smoking Status: Current every day smoker Past Alcohol Use History: None Reported Past Drug Use History: None Reported Medications and Allergies Home Medications Medication Instructions Recorded Confirmed Type Albuterol Inhaler [Ventolin Hfa 2 puff INHALATION RT-QID PRN 01/01/25 01/01/25 History Inhaler] Atorvastatin [Lipitor] 40 mg PO DAILY 01/01/25 01/01/25 History Ergocalciferol (Vitamin D2) 1,250 mcg PO WE 01/01/25 01/01/25 History [Drisdol (GEQ) 1,250 MCG (50,000 IU)] Escitalopram [Lexapro] 20 mg PO DAILY 01/01/25 01/01/25 History Fenofibrate [Lofibra] 160 mg PO DAILY 01/01/25 01/01/25 History Ibuprofen [Motrin] 800 mg PO Q8H PRN 01/01/25 01/01/25 History OLANZapine [ZyPREXA] 10 mg PO DAILY 01/01/25 01/01/25 History clonazePAM [KlonoPIN] 1 mg PO DAILY PRN 01/01/25 01/01/25 History Allergies Allergy/AdvReac Type Severity Reaction Status Date / Time No Known Allergies Allergy Verified 01/01/25 13:19 Physical Exam Vitals: Vital Signs Pulse Resp BP Pulse Ox 01/01/25 14:35 105 H 20 120/78 95 01/01/25 13:26 106 H 01/01/25 13:08 103 H 01/01/25 12:13 108 H 20 133/83 96 01/01/25 11:33 111 H 19 134/93 99 Intake and Output 01/01/25 01/01/25 01/01/25 06:59 14:59 22:59 Intake Total 200 Balance 200 Intake: IV 200 Other: Weight 148.325 kg Results CBC & Chem 7: 01/01/25 12:37 01/01/25 12:37 Labs: Abnormal Lab Results - Last 24 Hours (Table) 01/01/25 01/01/25 01/01/25 Range/Units 12:37 12:37 12:37 WBC 11.90 H (4.50-10.00) 10*3/uL Immature Gran # 0.07 H (0.00-0.04) 10*3/uL Neutrophils # 9.76 H (1.80-7.70) 10*3/uL Eosinophils # 0.03 L (0.04-0.35) 10*3/uL Sodium 133 L (137-145) mmol/L Glucose 127 H (74-99) mg/dL POC Glucose (mg/dL) (70-110) mg/dL AST 80 H (17-59) U/L Troponin I 4.420 H* (0.000-0.034) ng/mL HDL Cholesterol (40.00-60.00) mg/dL 01/01/25 01/01/25 Range/Units 12:37 19:00 WBC (4.50-10.00) 10*3/uL Immature Gran # (0.00-0.04) 10*3/uL Neutrophils # (1.80-7.70) 10*3/uL Eosinophils # (0.04-0.35) 10*3/uL Sodium (137-145) mmol/L Glucose (74-99) mg/dL POC Glucose (mg/dL) 152 H (70-110) mg/dL AST (17-59) U/L Troponin I (0.000-0.034) ng/mL HDL Cholesterol 31.60 L (40.00-60.00) mg/dL
--- NOTE | 2025-01-01 22:45 | P.DS ---
Providers Date of admission: 01/01/25 13:10 Attending physician: Libia Cannon MD Consults: 01/01/25 13:08 Consult Physician Routine Consulting Provider: William Rueda Consult Reason/Comments: copd Do you want consulting provider notified?: Yes 01/01/25 19:06 Consult Physician Routine Consulting Provider: Aron Carlisle Consult Reason/Comments: CABG eval 100 RCA 90 LAD 90 LCx Do you want consulting provider notified?: Yes Primary care physician: Stated None Hospital Course: Discharge diagnoses; #Triple-vessel disease Hospital course; Patient arrived in the emergency department due to significantly worsening shortness of breath. Something he states he has been enduring for the past 3-4 weeks. Upon arrival his troponin was found to be elevated at 4.420 and his EKG showed sinus tachycardia with a new right bundle branch block. He was urgently taken to undergo cardiac catheterization where he was found to have 100% proximal RCA stenosis, 90% proximal LAD stenosis, 90% mid left circumflex stenosis as well as an elevated LVEDP and wedge pressures. The original plan was to insert IABP, however there was significant kinking of the wire and was unable to be advanced in the femoral artery and was decided to abort the IABP placement. Plan was to attempt to reundergo IABP placement tomorrow. When seen and evaluated at bedside this evening in the ICU there was insufficient IV acc ess for heparin, and unsuccessful attempts despite ultrasound guidance. The patient consented for placement of a central line however within 5 minutes developed third-degree AV block with a ventricular rate in the 30s. Transcutaneous pacing was started, and the patient became agitated/anxious during the pacing and received 2 mg Versed in the effort to calm down. Cardiology was paged as well as DIET TECH for possibility of intubation. Patient was not tolerating pacing, agonal breathing was noted and no palpable pulses. At that time a CODE BLUE was called. Full timeline and list of events and the CODE BLUE accurately given in the event note. CPR, epinephrine, atropine, bicarbonate were all given throughout the duration of the code. He was intubated. He was noted to have entered ventricular fibrillation and was shocked multiple times during the duration of the code. CPR lasted for 25 minutes without resumption of pulse. Time of was 2130. Dictation was produced using [employer] software. please excuse any grammatical, word or spelling errors. Omar Yip MD PGY-1 IM Plan - Discharge Summary New Discharge Prescriptions: No Action Ergocalciferol (Vitamin D2) [Drisdol (GEQ) 1,250 MCG (50,000 IU)] 1,250 mcg PO WE OLANZapine [ZyPREXA] 10 mg PO DAILY Ibuprofen [Motrin] 800 mg PO Q8H PRN PRN Reason: Pain Or Fever > 100.5 Escitalopram [Lexapro] 20 mg PO DAILY clonazePAM [KlonoPIN] 1 mg PO DAILY PRN PRN Reason: Anxiety Fenofibrate [Lofibra] 160 mg PO DAILY Atorvastatin [Lipitor] 40 mg PO DAILY Albuterol Inhaler [Ventolin Hfa Inhaler] 2 puff INHALATION RT-QID PRN PRN Reason: Shortness Of Breath Discharge Medication List Albuterol Inhaler [Ventolin Hfa Inhaler] 2 puff INHALATION RT-QID PRN 01/01/25 [History] Atorvastatin [Lipitor] 40 mg PO DAILY 01/01/25 [History] Ergocalciferol (Vitamin D2) [Drisdol (GEQ) 1,250 MCG (50,000 IU)] 1,250 mcg PO WE 01/01/25 [History] Escitalopram [Lexapro] 20 mg PO DAILY 01/01/25 [History] Fenofibrate [Lofibra] 160 mg PO DAILY 01/01/25 [History] Ibuprofen [Motrin] 800 mg PO Q8H PRN 01/01/25 [History] OLANZapine [ZyPREXA] 10 mg PO DAILY 01/01/25 [History] clonazePAM [KlonoPIN] 1 mg PO DAILY PRN 01/01/25 [History] Follow up Appointment(s)/Referral(s): None,Stated [Primary Care Provider] - 1-2 days
[2025-01-02] MEDS ORDERED: HEPARIN SODIUM,PORCINE 10,000 UNIT in SODIUM CHLORIDE 0.9% 1,000 ML IRRIGATION PRN (07:00)
[2025-01-02] MEDS ORDERED: HEPARIN SODIUM,PORCINE (1 ML) 2,500 UNIT in SODIUM CHLORIDE 0.9% 250 ML IRRIGATION PRN (07:00)
[2025-01-02] MEDS ORDERED: ASPIRIN 81 MG PO SCH (09:00)
[2025-01-02] MEDS ORDERED: ASPIRIN 325 MG TAB PO SCH (09:00)
[2025-01-02] MEDS ORDERED: OLANZapine 10 MG TAB PO SCH (09:00)
[2025-01-02] MEDS ORDERED: FENOFIBRATE 160 MG TAB PO SCH (09:00)
[2025-01-02] MEDS ORDERED: ESCITALOPRAM 20 MG TAB PO SCH (09:00)
[2025-01-02] MEDS ORDERED: ATORVASTATIN 40 MG TAB PO SCH (09:00)
--- NOTE | 2025-01-08 12:06 | CDI ---
Documentation Clarification Form Date: 01/08/2025 11:29:53 AM From: Christal Mora RN, CCDS Email: [email or web address] Admit Date: 01/01/2025 01:10:00 PM Patient Name: Rayshawn Branch Visit Number: [id number] Discharge Date: 01/01/2025 11:50:00 PM ATTENTION: The Clinical Documentation Specialists (CDI) and [facility] Coding Staff appreciate your assistance in clarifying documentation. Please respond to the clarification below the line at the bottom and electronically sign. The CDI & [facility] Coding staff will review the response and follow-up if needed. Please note: Queries are made part of the Legal Health Record. If you have any questions, please contact the author of this message via ITS. Doctor Cristo Cannon The patient had the documented diagnosis of unspecified CHF exacerbation. Additional information regarding the type of CHF is requested. History/Risk Factors: From the H&P: "Severe COPD, smoker, HLD and bipolar. Presented with worsening SOB. On arrival Cardiology was consulted due to a severely elevated troponin at 4.420 and an EKG which showed sinus tachycardia with right bundle branch block. Additionally, chest x-ray was completed which showed findings of possible CHF exacerbation." Clinical Indicators: 01/01 VS/Pulse OX: HR 111 RR 35 pox 95% 01/01 BNP 2270; Troponin 4.420 01/01 Echocardiogram Results: EF 25-30%. Dilated LV cavity. Globally reduced LV systolic function. Mid to distal anterior wall and anteroapical wall hypokinesia 01/01 Chest X Ray: There is cardiomegaly with bibasilar opacities and central vascular congestion. Osseous structures are intact. Correlate for CHF exacerbation 01/01 Cardiology consult: "Extremities: 1+ pedal edema bilateral lower extremity. NSTEMI. Acute CHF exacerbation." 01/01 H&P: "NSTEMI w/triple vessel disease noted on cardiac cath. Acute CHF exacerbation." Treatment: s/p urgent heart cath with attempted IABP on 01/01; IV Lasix 40mg on 01/01; NTG drip 01/01; Heparin drip 01/01 In your professional opinion, can you please clarify the type of CHF: [ X ] Acute Systolic Heart Failure (reduced EF) [ ] Acute on Chronic Systolic Heart Failure (reduced EF) [ ] Acute Diastolic Heart Failure (preserved EF) [ ] Acute on Chronic Diastolic Heart Failure (preserved EF) [ ] Acute Systolic & Diastolic Heart Failure [ ] Acute on Chronic Heart Failure Systolic & Diastolic Heart Failure [ ] Other, please specify [ ] Unable to determine MTDD
== END 2025-01-01 23:50 | disposition expired ==
LOC: EC 11:29 → 4SSUR 13:10 → 3SCARD 14:29 → 2SICU 17:48
PROVIDERS: ADMIT Internal Medicine; ATTEND Internal Medicine
PROC: B548ZZA Ultrasonography of Superior Vena Cava, Guidance (ICD-10-PCS; 2025-01-01)
PROC: 4A023N8 Measurement of Cardiac Sampling and Pressure, Bilateral, Percutaneous Approach (ICD-10-PCS; 2025-01-01)
PROC: B2111ZZ Fluoroscopy of Multiple Coronary Arteries using Low Osmolar Contrast (ICD-10-PCS; 2025-01-01)
PROC: B5181ZA Fluoroscopy of Superior Vena Cava using Low Osmolar Contrast, Guidance (ICD-10-PCS; principal; 2025-01-01 17:40)
PROC: 0BH17EZ Insertion of Endotracheal Airway into Trachea, Via Natural or Artificial Opening (ICD-10-PCS; 2025-01-01 17:40)
PROC: 5A12012 Performance of Cardiac Output, Single, Manual (ICD-10-PCS; 2025-01-01 17:40)
PROC: 02HV33Z Insertion of Infusion Device into Superior Vena Cava, Percutaneous Approach (ICD-10-PCS; 2025-01-01 17:40)
PROC: 5A1223Z Performance of Cardiac Pacing, Continuous (ICD-10-PCS; 2025-01-01 17:40)
PROC: 3E033XZ Introduction of Vasopressor into Peripheral Vein, Percutaneous Approach (ICD-10-PCS; 2025-01-01 17:40)
DX: I21.4 Non-ST elevation (NSTEMI) myocardial infarction (principal); I50.21 Acute systolic (congestive) heart failure; I46.9 Cardiac arrest, cause unspecified; I49.01 Ventricular fibrillation; J44.1 Chronic obstructive pulmonary disease with (acute) exacerbation; E66.01 Morbid (severe) obesity due to excess calories; F31.9 Bipolar disorder, unspecified; I08.1 Rheumatic disorders of both mitral and tricuspid valves; I42.9 Cardiomyopathy, unspecified; I44.2 Atrioventricular block, complete; R09.02 Hypoxemia; Z68.38 Body mass index [BMI] 38.0-38.9, adult; I25.10 Atherosclerotic heart disease of native coronary artery without angina pectoris; I45.10 Unspecified right bundle-branch block; E78.1 Pure hyperglyceridemia; F17.210 Nicotine dependence, cigarettes, uncomplicated; R00.0 Tachycardia, unspecified; Z79.82 Long term (current) use of aspirin; Z79.899 Other long term (current) drug therapy; Z71.6 Tobacco abuse counseling
CPT/HCPCS: 33967; 36415; 71045; 80053; 80061; 82810; 83036; 83735; 83880; 84443; 84484; 85018; 85025; 85610; 85730; 92950; 93005; 93306; 93458; 93460; 94640; 96365; 96374; 96375; 99291